=== PATIENT | male | born 1955 | race Caucasian/White ===

== ENCOUNTER → 2017-10-19 15:59 | Outpatient (CLI) | payer MEDICARE | END | disposition home or self-care (01) | LOC: D.MRI 15:59 | DX: M51.24 Other intervertebral disc displacement, thoracic region (principal) ==

== ENCOUNTER 2017-10-29 05:14 | Inpatient (IN) | payer MEDICARE, MEDICAID ==
[~2017-10-29] VITALS: Ht 182.9 cm; Wt 147.9 kg
[~2017-10-29 05:14] MED LIST: BAYER CHEWABLE81 MG PO; FLUTICASONE PRO16 GM NASAL; GABAPENTIN100 MG PO; KLONOPIN1 MG PO; LIPITOR20 MG PO; TENORMIN100 MG PO; TYLENOL W/CODEI1 TAB PO; ZEPATIER PO; [UNRECOGNIZED DRUG - OTHER] PO
[2017-10-29] MEDS ORDERED: PROAIR HFA8.5 GM INH (05:48)
[2017-10-29] MEDS ORDERED: XANAX1 MG PO (05:49)
[2017-10-29 06:13] VITALS: BP 125/90; Ht 182.9 cm; Wt 147.9 kg
[2017-10-29 06:15] LABS: HEMOGLOBIN 14.4 g/dL (13.5-17.5); MCH 29.3 pg (26.0-34.0); MCHC 33.5 g/dL (31.0-37.0); MCV 87.4 fL (80.0-100.0); MEAN PLATELET VOLUME 11.3 fL (7.4-10.4); RBC 4.92 10x6/uL (4.20-6.10); RDW 13.2 % (11.5-14.5); WBC 9.2 10x3/uL (4.8-10.8)
[2017-10-29 06:33] LABS: ALBUMIN 3.4 g/dL (3.4-5.0); ALKALINE PHOSPHATASE 116 U/L (46-116); ALT (SGPT) 23 U/L (10-68); CALC OSMOLALITY 261 mosm/kg (275-300); CALCIUM 8.4 mg/dL (8.5-10.1); CARBON DIOXIDE 30.1 mmol/L (21.0-32.0); CHLORIDE - SERUM 98 mmol/L (98-107); GLUCOSE 104 mg/dL (74-106); PROTEIN - SERUM 6.8 g/dL (6.4-8.2); SODIUM 130 mmol/L (136-145); UREA NITROGEN 15 mg/dL (7-18); eGFR NON AFRICAN AMERICAN 81 mL/min (90-120)
[2017-10-30] VITALS: BP 138/84
[2017-10-30 04:00] VITALS: BP 134/65
[2017-10-30 08:10] VITALS: BP 163/66
[2017-10-30 11:31] VITALS: BP 132/68
[2017-10-30 15:29] VITALS: BP 136/66
[2017-10-30 20:00] VITALS: BP 166/78
[2017-10-31 04:00] VITALS: BP 111/64
[2017-10-31 07:53] VITALS: BP 144/62
[2017-10-31 12:44] VITALS: BP 132/56
[2017-10-31 15:56] VITALS: BP 129/59
[2017-10-31 20:00] VITALS: BP 127/62
[2017-11-01 04:00] VITALS: BP 155/70
[2017-11-01 08:04] VITALS: BP 136/68
[2017-11-01 12:02] VITALS: BP 126/69
[2017-11-01 15:33] VITALS: BP 138/63; BP 164/80
[2017-11-01 20:00] VITALS: BP 125/76
[2017-11-02 04:00] VITALS: BP 150/76
[2017-11-02 07:54] VITALS: BP 146/77
[2017-11-02 12:26] VITALS: BP 131/67
[2017-11-02 16:14] VITALS: BP 130/58
== END 2017-11-02 20:15 | DRG 29 ==
LOC: D.OPS 05:14 → D.MS 05:14 → D.PAN 07:30 → D.OPS 07:30 → D.MS 20:15 → D.OPS 20:16 → D.MS 20:17
PROVIDERS: Anesthesiology; Neurological Surgery
PROC: 0RB90ZZ Excision of Thoracic Vertebral Disc, Open Approach (ICD-10-PCS; principal; 2017-10-29 07:30)
DX: S24.109A Unspecified injury at unspecified level of thoracic spinal cord, initial encounter (principal); Z68.41 Body mass index [BMI] 40.0-44.9, adult; M51.24 Other intervertebral disc displacement, thoracic region; I10 Essential (primary) hypertension; B18.2 Chronic viral hepatitis C; E78.5 Hyperlipidemia, unspecified; E66.9 Obesity, unspecified; F41.8 Other specified anxiety disorders; J44.9 Chronic obstructive pulmonary disease, unspecified; I25.10 Atherosclerotic heart disease of native coronary artery without angina pectoris

== ENCOUNTER 2018-01-04 10:16 | Inpatient (IN) | payer MEDICARE, MEDICAID ==
[~2018-01-04] VITALS: Ht 182.9 cm; Wt 148.9 kg
--- NOTE | ~2018-01-04 | OP ---
PATIENT NAME: BOBBY MILLS SR MEDICAL RECORD: [id number] :59 LOCATION:[id number] ADMISSION DATE:01/04/18 SURGEON: TERI DE LUNA MD DATE OF OPERATION: 01/04/2018 PREOPERATIVE DIAGNOSIS: Lumbar spinal stenosis at T10 and T11 with a thoracic disc protrusion, recurrent disc protrusion at T10-T11. PROCEDURE: Thoracic laminectomy at T10 and T11, transpedicular decompression with discectomy at T10 and T11 bilaterally. SURGEON: Teri De Luna MD DESCRIPTION OF TECHNIQUE: After induction of general endotracheal anesthesia, the patient was rolled prone on chest and hip rolls. Thoracic spine was prepped and draped in usual sterile fashion. Fluoroscopic x-ray and spinal needle localized the T10-T11 interspace. A skin incision was carried out from the previous incision, extended inferiorly approximately to the spinous processes of T11. On the left side T10-T11 was exposed and confirmed with fluoroscopic x-ray the spinous processes and lamina as well as facets on both sides. A laminectomy was carried out at T10-T11 on the left with the Midas-Tylor drill. The pedicle was drilled down until the disc space was encountered. Disc material was removed with pituitary rongeurs. On the opposite side, hypertrophied ligamentum flavum was drilled with the Midas-Tylor drill as well as lamina and a foraminotomy was carried out on the right as well. The dura appeared to be decompressed well. Meticulous hemostasis was maintained throughout the wound. The wound was irrigated with copious amounts of Ancef irrigant solution. The fascia was closed with 2-0 Vicryl suture, the subdermal layer was closed with 3-0 Vicryl suture. Skin was closed with jaret. A sterile dressing was applied to the wound. The patient was awakened in good condition and taken to recovery. All counts were reported as correct. Estimated blood loss was minimal. TRANSINT:[id number] Voice Confirmation ID: [id number] DOCUMENT ID: [id number] TERI DE LUNA MD at 1832 CC: [id number] DICTATION DATE: 02/01/18 1615 SPIDER ASSEMBLER: 02/01/18 1629 DIS IN 01/07/18 [place] [id number] [place] [place] [id number]
[~2018-01-04 10:16] MED LIST changes: +PROAIR HFA8.5 GM INH; +XANAX1 MG PO
[2018-01-04 11:25] LABS: BASOPHILS 0.2 % (0-2); EOSINOPHILS 1.4 % (0-7); HEMATOCRIT 43.9 % (42.0-54.0); HEMOGLOBIN 14.8 g/dL (13.5-17.5); IMMATURE GRANULOCYTES 0.2 % (0-5); LYMPHOCYTES 38.3 % (15-50); MCH 29.2 pg (26.0-34.0); MCHC 33.7 g/dL (31.0-37.0); MCV 86.8 fL (80.0-100.0); MEAN PLATELET VOLUME 11.3 fL (7.4-10.4); MONOCYTES 9.6 % (2-11); NEUTROPHILS 50.3 % (40-80); PLATELET COUNT 198 10x3/uL (130-400); RBC 5.06 10x6/uL (4.20-6.10); RDW 13.4 % (11.5-14.5); WBC 8.1 10x3/uL (4.8-10.8)
[2018-01-04 11:27] LABS: ALBUMIN 3.5 g/dL (3.4-5.0); ALKALINE PHOSPHATASE 129 U/L (46-116); ALT (SGPT) 26 U/L (10-68); CALC OSMOLALITY 278 mosm/kg (275-300); CALCIUM 9.1 mg/dL (8.5-10.1); CARBON DIOXIDE 29.6 mmol/L (21.0-32.0); CHLORIDE - SERUM 103 mmol/L (98-107); CREATININE - SERUM 0.9 mg/dL (0.6-1.3); GLUCOSE 133 mg/dL (74-106); POTASSIUM - SERUM 3.6 mmol/L (3.5-5.1); SODIUM 138 mmol/L (136-145); UREA NITROGEN 15 mg/dL (7-18); eGFR NON AFRICAN AMERICAN > 90 mL/min (90-120)
[2018-01-04] MEDS ORDERED: GABAPENTIN100 MG PO (23:05)
[2018-01-04] MEDS ORDERED: TENORMIN25 MG PO (23:07)
[2018-01-04] MEDS ORDERED: HYZAAR 100-25 T1 TAB PO (23:11)
[2018-01-04] MEDS ORDERED: VITAMIN D31000 UNIT PO (23:12)
[2018-01-04] MEDS ORDERED: SUPER B COMPLE150 MG PO (23:12)
[2018-01-04 23:41] VITALS: BP 138/72; BMI 85.4
[2018-01-04 23:53] LABS: APPEARANCE CLEAR (CLEAR); COLOR YELLOW (YELLOW)
[2018-01-04 23:54] LABS: BILIRUBIN NEGATIVE (NEGATIVE); GLUCOSE NEGATIVE (NEGATIVE); KETONE NEGATIVE (NEGATIVE); NITRITE NEGATIVE (NEGATIVE); PROTEIN NEGATIVE (NEGATIVE); SPECIFIC GRAVITY 1.015 (1.005-1.020); UROBILINOGEN NORMAL (NORMAL); WHITE CELLS - URINE 0-5 /hpf (0-5)
[2018-01-04 23:55] LABS: AMORPHOUS SEDIMENT <1+ /lpf (NONE SEEN); BACTERIA FEW /hpf (NONE SEEN); EPITHELIAL CELLS 0-5 /hpf (0-5); RED CELLS - URINE 0-5 /hpf (0-5)
[2018-01-05 00:16] VITALS: BP 154/84
[2018-01-05 05:05] VITALS: BP 130/79
[2018-01-05 08:15] VITALS: BP 158/98
[2018-01-05 11:47] VITALS: Ht 182.9 cm; Wt 148.9 kg
[2018-01-05 12:26] VITALS: BP 130/79
[2018-01-05 16:25] VITALS: BP 167/88
[2018-01-05 21:54] VITALS: BP 142/77
[2018-01-06 01:01] VITALS: BP 154/74
[2018-01-06 04:47] VITALS: BP 148/74
[2018-01-06 11:05] VITALS: BP 161/93
[2018-01-06 11:48] VITALS: BP 161/93
[2018-01-06 16:14] VITALS: BP 153/102
[2018-01-06 21:03] VITALS: BP 140/72
[2018-01-07 00:58] VITALS: BP 128/84
[2018-01-07 04:55] VITALS: BP 134/84
[2018-01-07 08:02] VITALS: BP 170/87
[2018-01-07 13:24] VITALS: BP 164/79
[2018-01-07] MEDS ORDERED: COZAAR50 MG PO (15:00)
[2018-01-07] MEDS ORDERED: DILAUDID4 MG PO (15:01)
== END 2018-01-07 18:20 | DRG 519 ==
LOC: D.ER 10:16 → D.EDHOLD 12:21 → D.MS 12:21
PROVIDERS: Family Medicine
PROC: 0RT90ZZ Resection of Thoracic Vertebral Disc, Open Approach (ICD-10-PCS; principal; 2018-01-04)
PROC: 00NX0ZZ Release Thoracic Spinal Cord, Open Approach (ICD-10-PCS; 2018-01-04)
DX: M51.24 Other intervertebral disc displacement, thoracic region (principal); Z68.45 Body mass index [BMI] 70 or greater, adult; G62.9 Polyneuropathy, unspecified; E66.01 Morbid (severe) obesity due to excess calories; I10 Essential (primary) hypertension; F32.9 Major depressive disorder, single episode, unspecified; F41.9 Anxiety disorder, unspecified; W18.2XXA Fall in (into) shower or empty bathtub, initial encounter

== ENCOUNTER 2018-01-07 15:48 | Inpatient (IN) | payer MEDICARE, MEDICAID ==
[~2018-01-07] VITALS: Ht 182.9 cm; Wt 148.8 kg
--- NOTE | ~2018-01-07 | RHP ---
PATIENT: BOBBY MILLS MEDICAL RECORD: [id number] ACCOUNT: [id number] LOCATION:[facility] : 59 ADMISSION DATE: 01/07/18 REHABILITATION HISTORY AND PHYSICAL EXAMINATION POST ADMISSION PHYSICIAN EXAMINATION POST-ADMISSION PHYSICAL EXAMINATION AND HISTORY AND PHYSICAL DATE OF ADMISSION: 01/07/2018 ADMITTING DIAGNOSIS: Fall with spinal cord compression at T10-T11. HISTORY OF PRESENT ILLNESS: The patient is a 62-year-old gentleman, admitted to the inpatient rehab with a traumatic spinal cord injury after a fall. He was admitted from the ER on 01/04. He is status post thoracic black, transpedicular decompression for discectomy 4 weeks ago and suffered a fall in the bathtub at home. Complained of recurrent weakness of his lower extremities. MRI showed a herniated disc at T10-T11, left and right herniated nucleus pulposus, spinal cord compression. He was admitted for neurosurgical consult. On 01/06, he went to the OR for thoracic laminectomy. Previously lived with his . He was moderately independent with rolling walker and ADLs and mobility. Currently, he is fkprbgcb-xd-pss assist for xeh-sc-wxuum and ear-gt-rmsqg. He is able to ambulate 2 feet with max assist with a rolling walker, gait belt, and physical therapy. He has poor balance. He has had a loss of balance while ambulating and wants to be able to return home hopefully with his prior level of functioning or better. Comorbidities in this patient include essential hypertension, COPD, multilevel spondylosis, status post laminectomy at L5-S1, status post laminectomy on 01/06, coronary artery disease, status post PTCA with stent, history of IN, asthma, TIA, hypoxia, neuropathy, hypoglycemia, hepatitis C, arthritis, anxiety, depression, and obesity. PAST MEDICAL HISTORY: Significant for hepatitis, hypoglycemia, hypertension, IN, stent placement in the past, depression, and anxiety. PAST SURGICAL HISTORY: Includes knee replacement, back surgery, and scope of his knee. ALLERGIES: MORPHINE. CURRENT MEDICATIONS: Include vitamin D daily. He is on Cozaar 100 mg daily. He is on Neurontin 100 mg b.i.d., Flonase nasal spray 2 sprays daily, vitamin D 4000 units daily, Lipitor 20 mg daily, atenolol 25 mg daily, aspirin chewable 81 mg daily, Ventolin 2 puffs as needed. He is on Mylanta p.r.n. heartburn. He is on Dilaudid 4 mg every 4 hours p.r.n. pain, Neurontin 200 mg at bedtime, Klonopin 1 mg at bedtime, Xanax 1 mg t.i.d. p.r.n., Tylenol with Codeine 1 tab every 4 hours p.r.n., and MiraLax 17 grams in 8 ounces of water daily. HABITS: No alcohol or tobacco use. FAMILY HISTORY: Noncontributory. SOCIAL HISTORY: The patient hopes to return back home and get back to his prior level of functioning. REVIEW OF SYSTEMS: HISTORY AND PHYSICAL [id number] BOBBY MILLS SR GENERAL: Does complain of weakness and fatigue. HEENT: Denies cold, cough, or congestion. CARDIOVASCULAR: Denies chest pain. PHYSICAL EXAMINATION: VITAL SIGNS: Stable, afebrile. GENERAL: A morbidly obese gentleman, in no acute distress upon exam. HEENT: Normocephalic, atraumatic. Mucosa moist. NECK: Supple. No lymphadenopathy. LUNGS: Clear at this time. HEART: Regular rate and rhythm. ABDOMEN: Benign. EXTREMITIES: No clubbing, cyanosis or edema. NEUROLOGIC: He is noted to have weakness. LABORATORY DATA: His white count is 14.3, H&H of 14 and 42, and platelet count is noted to be 189. Sodium 141, potassium 3.6, BUN and creatinine of 28 and 0.8. Blood sugar is noted to be 134. ASSESSMENT: This is a 62-year-old gentleman admitted to the rehab with a working diagnosis of spinal cord decompression status post fall. The patient has potential to make improvement. We will institute the following multidisciplinary therapies including, but not limited to, physical, occupational, respiratory, speech, nutritional services, prosthetics and orthotics. Given his complex medical condition and risks for more complications, rehabilitation services cannot be provided at a low level of care such as a intermediate facility. PLAN: 1. Admit to [facility] for intensive inpatient therapy to include the following disciplines: A. Physical therapy to improve gait, all transfer skills and bed mobility to a modified independent level. B. Occupational therapy to improve activities of daily living to a modified independent level. C. Case management to assist with discharge planning and placement options. D. Nutrition to assist with nutritional needs. E. Rehabilitation nursing to assist in monitoring the patient's underlying medical conditions and to assist with any type of bowel or bladder management. 2. The patient's current medications and medical care will be continued. 3. The patient will be placed on standard fall precautions. 4. The patient's estimated length of stay is approximately 7-10 days. 5. We will discuss this patient during care team staff meeting this week. TRANSINT:[id number] Voice Confirmation ID: [id number] DOCUMENT ID: [id number] RADHA notes whether there has been none or any medical/functional change since admission: - No change since preadmission screen. RADHA attests patient continues to be appropriate for IRF: - Continues to be appropriate. HISTORY AND PHYSICAL [id number] BOBBY MILLS SR, SCOTT MD at 1411 CC: [id number] DICTATION DATE: 01/08/18 1131 TRACER CLERK: 01/08/18 1152 ADM IN [facility] [address] [place] [address]
[~2018-01-07 15:48] MED LIST changes: +COZAAR50 MG PO; +DILAUDID4 MG PO; +HYZAAR 100-25 T1 TAB PO; +SUPER B COMPLE150 MG PO; +TENORMIN25 MG PO; +VITAMIN D31000 UNIT PO
[2018-01-07 19:00] VITALS: BP 119/73
[2018-01-07 19:11] VITALS: BMI 44.6
[2018-01-08 06:21] LABS: BASOPHILS 0.1 % (0-2); EOSINOPHILS 0 % (0-7); HEMATOCRIT 41.6 % (42.0-54.0); IMMATURE GRANULOCYTES 1.3 % (0-5); LYMPHOCYTES 16.7 % (15-50); MCHC 33.7 g/dL (31.0-37.0); MCV 86.3 fL (80.0-100.0); MEAN PLATELET VOLUME 11.2 fL (7.4-10.4); MONOCYTES 7.5 % (2-11); NEUTROPHILS 74.4 % (40-80); PLATELET COUNT 189 10x3/uL (130-400); RBC 4.82 10x6/uL (4.20-6.10); RDW 13.1 % (11.5-14.5); WBC 14.3 10x3/uL (4.8-10.8)
[2018-01-08 06:54] LABS: CALC OSMOLALITY 288 mosm/kg (275-300); CALCIUM 8.5 mg/dL (8.5-10.1); CARBON DIOXIDE 28.8 mmol/L (21.0-32.0); CHLORIDE - SERUM 103 mmol/L (98-107); CREATININE - SERUM 0.8 mg/dL (0.6-1.3); GLUCOSE 134 mg/dL (74-106); POTASSIUM - SERUM 3.6 mmol/L (3.5-5.1); SODIUM 141 mmol/L (136-145); UREA NITROGEN 28 mg/dL (7-18); eGFR NON AFRICAN AMERICAN > 90 mL/min (90-120)
[2018-01-08 09:27] VITALS: BP 141/77
[2018-01-08 10:46] VITALS: Ht 182.9 cm; Wt 148.8 kg
[2018-01-08 20:24] VITALS: BP 151/75
[2018-01-09 08:56] VITALS: BP 183/81
[2018-01-09 19:43] VITALS: BP 144/74
[2018-01-10 05:58] LABS: BASOPHILS 0.1 % (0-2); EOSINOPHILS 0.3 % (0-7); HEMATOCRIT 43.9 % (42.0-54.0); HEMOGLOBIN 14.8 g/dL (13.5-17.5); IMMATURE GRANULOCYTES 1.2 % (0-5); LYMPHOCYTES 26.2 % (15-50); MCH 29.2 pg (26.0-34.0); MCHC 33.7 g/dL (31.0-37.0); MCV 86.8 fL (80.0-100.0); MEAN PLATELET VOLUME 11.3 fL (7.4-10.4); MONOCYTES 8.5 % (2-11); NEUTROPHILS 63.7 % (40-80); PLATELET COUNT 193 10x3/uL (130-400); RBC 5.06 10x6/uL (4.20-6.10); RDW 13.4 % (11.5-14.5); WBC 13.3 10x3/uL (4.8-10.8)
[2018-01-10 06:15] LABS: CALC OSMOLALITY 285 mosm/kg (275-300); CALCIUM 8.4 mg/dL (8.5-10.1); CARBON DIOXIDE 29.2 mmol/L (21.0-32.0); CHLORIDE - SERUM 103 mmol/L (98-107); CREATININE - SERUM 0.8 mg/dL (0.6-1.3); GLUCOSE 109 mg/dL (74-106); POTASSIUM - SERUM 3.4 mmol/L (3.5-5.1); SODIUM 140 mmol/L (136-145); UREA NITROGEN 28 mg/dL (7-18); eGFR NON AFRICAN AMERICAN > 90 mL/min (90-120)
[2018-01-10 08:00] VITALS: BP 148/88
[2018-01-10 20:51] VITALS: BP 138/83
[2018-01-11 07:59] VITALS: BP 124/78
[2018-01-11 19:23] VITALS: BP 110/65
[2018-01-12 07:18] LABS: BASOPHILS 0.1 % (0-2); EOSINOPHILS 1.2 % (0-7); HEMATOCRIT 40.7 % (42.0-54.0); HEMOGLOBIN 13.6 g/dL (13.5-17.5); IMMATURE GRANULOCYTES 0.8 % (0-5); LYMPHOCYTES 23.8 % (15-50); MCH 29.1 pg (26.0-34.0); MCHC 33.4 g/dL (31.0-37.0); MEAN PLATELET VOLUME 10.9 fL (7.4-10.4); MONOCYTES 7.9 % (2-11); NEUTROPHILS 66.2 % (40-80); RBC 4.68 10x6/uL (4.20-6.10); RDW 13.3 % (11.5-14.5)
[2018-01-12 07:28] LABS: PLATELET COUNT 154 10x3/uL (130-400)
[2018-01-12 07:39] LABS: CALC OSMOLALITY 284 mosm/kg (275-300); CALCIUM 8.3 mg/dL (8.5-10.1); CARBON DIOXIDE 29.6 mmol/L (21.0-32.0); CHLORIDE - SERUM 104 mmol/L (98-107); CREATININE - SERUM 0.9 mg/dL (0.6-1.3); GLUCOSE 111 mg/dL (74-106); POTASSIUM - SERUM 3.6 mmol/L (3.5-5.1); SODIUM 140 mmol/L (136-145); UREA NITROGEN 27 mg/dL (7-18); eGFR NON AFRICAN AMERICAN > 90 mL/min (90-120)
[2018-01-12 08:28] VITALS: BP 124/72
[2018-01-12 20:05] VITALS: BP 146/72
[2018-01-13 08:00] VITALS: BP 174/81
[2018-01-13 20:00] VITALS: BP 142/78
[2018-01-14 07:34] LABS: BASOPHILS 0.2 % (0-2); CALC OSMOLALITY 279 mosm/kg (275-300); CALCIUM 8.3 mg/dL (8.5-10.1); CARBON DIOXIDE 29.2 mmol/L (21.0-32.0); CHLORIDE - SERUM 102 mmol/L (98-107); CREATININE - SERUM 0.8 mg/dL (0.6-1.3); EOSINOPHILS 0.7 % (0-7); GLUCOSE 107 mg/dL (74-106); HEMATOCRIT 41.2 % (42.0-54.0); HEMOGLOBIN 13.9 g/dL (13.5-17.5); MCH 29.3 pg (26.0-34.0); MCHC 33.7 g/dL (31.0-37.0); MCV 86.9 fL (80.0-100.0); MEAN PLATELET VOLUME 11.9 fL (7.4-10.4); MONOCYTES 8.7 % (2-11); NEUTROPHILS 65.4 % (40-80); PLATELET COUNT 138 10x3/uL (130-400); RBC 4.74 10x6/uL (4.20-6.10); RDW 13.2 % (11.5-14.5); SODIUM 138 mmol/L (136-145); UREA NITROGEN 23 mg/dL (7-18); WBC 11.5 10x3/uL (4.8-10.8); eGFR NON AFRICAN AMERICAN > 90 mL/min (90-120)
[2018-01-14 08:25] VITALS: BP 138/78
[2018-01-14 20:49] VITALS: BP 116/70
[2018-01-15 08:00] VITALS: BP 144/78
[2018-01-15 19:45] VITALS: BP 128/82
[2018-01-16 08:02] VITALS: BP 135/78
[2018-01-16 21:01] VITALS: BP 129/68
[2018-01-17 06:11] LABS: BASOPHILS 0.1 % (0-2); EOSINOPHILS 0.7 % (0-7); HEMATOCRIT 39.2 % (42.0-54.0); HEMOGLOBIN 13.4 g/dL (13.5-17.5); IMMATURE GRANULOCYTES 0.7 % (0-5); LYMPHOCYTES 23.2 % (15-50); MCH 29.3 pg (26.0-34.0); MCHC 34.2 g/dL (31.0-37.0); MCV 85.8 fL (80.0-100.0); MEAN PLATELET VOLUME 10.4 fL (7.4-10.4); MONOCYTES 8.2 % (2-11); NEUTROPHILS 67.1 % (40-80); RBC 4.57 10x6/uL (4.20-6.10); RDW 13.2 % (11.5-14.5); WBC 11.7 10x3/uL (4.8-10.8)
[2018-01-17 06:15] LABS: PLATELET COUNT 184 10x3/uL (130-400)
[2018-01-17 06:29] LABS: CALC OSMOLALITY 279 mosm/kg (275-300); CALCIUM 8.9 mg/dL (8.5-10.1); CARBON DIOXIDE 27.1 mmol/L (21.0-32.0); CHLORIDE - SERUM 104 mmol/L (98-107); CREATININE - SERUM 0.8 mg/dL (0.6-1.3); GLUCOSE 107 mg/dL (74-106); POTASSIUM - SERUM 3.9 mmol/L (3.5-5.1); SODIUM 140 mmol/L (136-145); UREA NITROGEN 16 mg/dL (7-18); eGFR NON AFRICAN AMERICAN > 90 mL/min (90-120)
[2018-01-17 08:14] VITALS: BP 133/76
[2018-01-17 21:08] VITALS: BP 143/69
[2018-01-18 08:00] VITALS: BP 121/85
[2018-01-18 19:36] VITALS: BP 136/68
[2018-01-19 08:00] VITALS: BP 140/68
== END 2018-01-19 16:00 | disposition home health service (06) | DRG 52 ==
LOC: D.REHAB 15:48
PROVIDERS: Emergency Medicine
DX: S24.104A Unspecified injury at T11-T12 level of thoracic spinal cord, initial encounter (principal); Z68.41 Body mass index [BMI] 40.0-44.9, adult; I10 Essential (primary) hypertension; J44.9 Chronic obstructive pulmonary disease, unspecified; M47.9 Spondylosis, unspecified; I25.10 Atherosclerotic heart disease of native coronary artery without angina pectoris; Z95.5 Presence of coronary angioplasty implant and graft; R09.02 Hypoxemia; G62.9 Polyneuropathy, unspecified; E16.2 Hypoglycemia, unspecified; B19.20 Unspecified viral hepatitis C without hepatic coma; M19.90 Unspecified osteoarthritis, unspecified site; F41.8 Other specified anxiety disorders; E66.9 Obesity, unspecified; W19.XXXA Unspecified fall, initial encounter

== ENCOUNTER 2018-10-17 10:05 | Day surgery (SDC) | payer MEDICARE, MEDICAID ==
[~2018-10-17] VITALS: Ht 182.9 cm; Wt 136.1 kg
--- NOTE | 2018-10-17 09:35 | HP ---
PATIENT: BOBBY MILLS SR MEDICAL RECORD: [id number] ACCOUNT: [id number] LOCATION:[facility] : 59 ADMISSION DATE: 10/17/18 PCP: HISTORY AND PHYSICAL EXAMINATION HISTORY: Mr. Mills is a 63-year-old male with nasal obstruction symptoms and mass in the nasopharynx. He is being admitted for direct laryngoscopy and biopsy of the mass in the nasopharynx. PAST MEDICAL HISTORY: Includes hypertension, reactive airway disease, liver disease, and CVA. PAST SURGICAL HISTORY: Includes back surgery times 3, last one in [address] De Luna; and knee surgery in 2010. CURRENT MEDICATIONS: Include Lipitor, alprazolam, atenolol, Hyzaar, and Ventolin. PHYSICAL EXAMINATION: GENERAL: He is healthy appearing, normal voice. FACE: Normal and symmetric. No lesions. EYES: Sclerae and conjunctivae are normal. EARS: TMs are intact. No middle ear effusion. NOSE: No masses, polyps, or drainage. ORAL CAVITY: Oropharynx is normal. No lesions. NECK: No masses. No adenopathy. CHEST: Clear. CARDIOVASCULAR: Regular rate and rhythm. No murmur. EXTREMITIES: Nasal endoscopy reveals right-sided lumpy mass in the posterior wall of the nasopharynx, not particularly friable. IMPRESSION: Nasopharyngeal mass. PLAN: Direct laryngoscopy and biopsy of nasopharynx. TRANSINT:[id number] Voice Confirmation ID: [id number] DOCUMENT ID: [id number] RHONDA ACKERMAN MD at 0935 CC: [id number] DICTATION DATE: 10/14/18 1508 RUG BACKING STENCILER: 10/14/18 1525 PRE [facility] [address] [place] [id number]
[~2018-10-17 10:05] MED LIST changes: +ALBUTEROL SULF8.5 GM
[2018-10-17 10:28] LABS: HEMATOCRIT 45.1 % (42.0-54.0); HEMOGLOBIN 15.3 g/dL (13.5-17.5); MCH 29.1 pg (26.0-34.0); MCHC 33.9 g/dL (31.0-37.0); MCV 85.7 fL (80.0-100.0); RBC 5.26 10x6/uL (4.20-6.10); RDW 13.5 % (11.5-14.5); WBC 8.8 10x3/uL (4.8-10.8)
[2018-10-17 12:20] VITALS: BP 136/87; Ht 182.9 cm; Wt 136.1 kg
--- NOTE | 2018-10-17 17:09 | OP ---
PATIENT NAME: BOBBY MILLS SR MEDICAL RECORD: [id number] :59 [facility] DATE: SURGEON: RHONDA PAT MD DATE OF OPERATION: 10/17/2018 PREOPERATIVE DIAGNOSIS: Nasopharyngeal mass. POSTOPERATIVE DIAGNOSIS: Nasopharyngeal mass. PROCEDURES: Direct laryngoscopy and biopsy of nasopharynx. SURGEON: Rhonda Pat MD ANESTHESIA: General orotracheal. BLOOD LOSS: Less than 5 cc. SPECIMENS: Multiple biopsies of the nasopharynx. COMPLICATIONS: None. DISPOSITION: Recovery, stable. DESCRIPTION OF PROCEDURE: He was brought to the operating room, placed in the supine position, sedated and intubated by anesthesia. Table was turned 90 degrees. Kleinsasser J laryngoscope was used to examine hypopharynx, posterior oral cavity, base of tongue, vallecula, supraglottic larynx, cords, and postcricoid area. No lesions were identified. The palate was normal to palpation as well as were the lateral pharyngeal cage. Using a headlight, a Angie-Raul mouth gag was carefully inserted and elevated on a towel on his chest. The red rubber catheter was placed through the right side of the nose into the pharynx and grasped with tonsil clamp to retract the soft palate. Using a mirror, the nasopharynx was examined. Again, right-sided nasopharyngeal mass or fullness was visualized. The choanae and eustachian tube orifices were normal bilaterally. The mass did face the fossa of Rosenmuller on the right side. Straight biting 4-mm cup forceps was used to make several biopsies superficially and deep, mostly on the right side of the nasopharynx but also on the left side as well, removing most of the tissue where the adenoid pad would naturally be all the way up against the left fossa of Rosenmuller and then deep into the right side and little bit off the torus on the right side as well as the fullness went up on to the superior surface of that. Suction cautery on a setting of 20 was used to stop a little bit of bleeding. There really was not much when I reexamined the nasopharynx in the area. No other lesions were identified. Nasopharyngeal surface of the palate was all normal as were the lateral cage. There was no bleeding. The Angie-Raul mouth gag was let down and removed. He was awakened, extubated, and transported to recovery in good condition. No complications. No frozens were sent because basically all of the tissue that really appeared abnormal was taken with biopsies. I did not want to waste any on frozen section so that all could be processed permanently. There really were not any additional biopsies that could be taken anyway. He was awakened, extubated, and transported to recovery in good condition. No complications. TRANSINT:[id number] Voice Confirmation ID: [id number] DOCUMENT ID: [id number] OPERATIVE REPORT [id number] BOBBY MILLS SR, ERIC MD at 1709 CC: [id number] DICTATION DATE: 10/17/18 1439 TELEPHONE SOLICITOR SUPERVISOR: 10/17/18 1538 [facility] 10/17/18 [place] [id number] [place] [address]
== END 2018-10-17 16:00 | disposition home or self-care (01) ==
LOC: D.OPS 10:05
PROVIDERS: Anesthesiology
DX: J34.89 Other specified disorders of nose and nasal sinuses (principal); I10 Essential (primary) hypertension; J45.909 Unspecified asthma, uncomplicated; K76.9 Liver disease, unspecified; Z86.73 Personal history of transient ischemic attack (TIA), and cerebral infarction without residual deficits